=== PATIENT | male | born 1955 | race Caucasian/White ===

== ENCOUNTER 2019-10-18 13:57 | Inpatient (IN) ==
[2019-10-18] MEDS ORDERED: methylPREDNISolone SOD SUC 125 MG/2 ML VIAL IV STA (14:26)
[2019-10-18] MEDS ORDERED: cefTRIAXone 1,000 MG in SODIUM CHLORIDE 0.9% 100 ML IV STA (14:26)
[2019-10-18] MEDS ORDERED: ONDANSETRON 4 MG/2 ML VIAL IV STA (14:26)
[2019-10-18] MEDS ORDERED: ALBUTEROL 2.5 MG/3 ML NEB RESP TX SCH (14:30)
[2019-10-18] MEDS ORDERED: cefTRIAXone 1,000 MG VIAL ONE (15:02)
[2019-10-18 15:07] LABS: ABG Base Excess 3.5 MMOL/L (-2.5-2.5); ABG HCO3 27.5 MMOL/L (20-26); ABG Oxygen Saturation 98.4 % (95-100); ABG PH 7.448 (7.35-7.45); ABG TCO2 24.7 MMOL/L (23-27)
[2019-10-18 15:13] LABS: Basophils % 0.4 % (0.0-0.8); Eosinophils # 0.2 10*3/uL (0.0-0.87); Eosinophils % 1.9 % (0.00-10.9); Hematocrit 33.3 VOL% (42.0-52.0); Hemoglobin 11.5 GM/DL (14.0-18.0); Immature Granulocytes % 0.3 %; Immature Granulocytes Absolute 0.03 #; Lymphocytes # 2.7 10*3/uL (1.4-4.0); Lymphocytes % 24.9 % (21.2-54.2); Mean Corpuscular HGB Conc 34.5 GM/DL (32-36); Mean Corpuscular Volume 97.7 FL (87-102); Mean Platelet Volume 10.7 FL (9.6-12.0); Monocytes % 12.5 % (1.7-12.7); Platelet Count 305 T/CUMM (130-400); Red Blood Count 3.41 MC/CUMM (3.8-5.5); Red Cell Distribution Width 11.9 % (9.3-17.3); White Blood Count 10.7 T/CUMM (4-12)
[2019-10-18 15:31] LABS: INR 1.1; PT Patient Result 11.4 SECS (9.6-12.2)
[2019-10-18 15:53] LABS: Albumin 2.6 G/DL (3.4-5.0); Bilirubin,Total 0.6 MG/DL (0.2-1.0); Calcium 9.4 MG/DL (8.5-10.1); Total Protein 6.8 G/DL (6.4-8.3)
[2019-10-18] MEDS ORDERED: DILTIAZEM 25 MG/5 ML VIAL IV ONE (15:53)
[2019-10-18] MEDS ORDERED: DILTIAZEM 50 MG/10 ML VIAL IV STA (15:53)
[2019-10-18] MEDS ORDERED: SODIUM CHLORIDE 0.9% 1,000 ML IV STA ×2 (15:54→17:27)
[2019-10-18] MEDS ORDERED: dilTIAZem Drip 125 MG/125 ML PREMIX IV ONE (15:55)
[2019-10-18] MEDS ORDERED: dilTIAZem Drip 125 MG/125 ML PREMIX IV SCH (16:00)
[2019-10-18] MEDS ORDERED: MAGNESIUM SULF RIDER 2 GM in PREMIX 1 EACH IV STA (16:43)
[2019-10-18] MEDS ORDERED: PHENYLEPHRINE DRIP 40 MG/250 ML PREMIX IV ONE (17:12)
[2019-10-18] MEDS ORDERED: DIGOXIN 0.5 MG/2 ML AMP ONE (17:12)
[2019-10-18] MEDS ORDERED: DIGOXIN 0.5 MG/2 ML AMP IV STA ×2 (17:12→19:00)
[2019-10-18] MEDS ORDERED: PHENYLEPHRINE DRIP 40 MG/250 ML PREMIX IV PRN (17:27)
[2019-10-18] MEDS ORDERED: KETOROLAC 30 MG/1 ML VIAL ONE (17:32)
[2019-10-18] MEDS ORDERED: KETOROLAC 30 MG/1 ML VIAL IV ONE (17:45)
[2019-10-18] MEDS ORDERED: ONDANSETRON 4 MG/2 ML VIAL IV PRN (17:57)
[2019-10-18] MEDS ORDERED: ALBUTEROL 2.5 MG/3 ML NEB RESP TX PRN (17:57)
[2019-10-18] MEDS: SODIUM CHLORIDE 0.9% 1,000 ML IV SCH (19:17)
[2019-10-18] MEDS: ALBUTEROL/IPRATROPIUM 3 ML NEB RESP TX SCH (19:38)
[2019-10-18] MEDS ORDERED: DILTIAZEM CD 120 MG CAPSULE PO SCH (21:00)
[2019-10-18] MEDS: DILTIAZEM 30 MG TABLET PO SCH (23:02)
[2019-10-18] MEDS: GABAPENTIN 300 MG CAPSULE PO SCH (23:03)
[2019-10-18] MEDS: methylPREDNISolone SOD SUC 40 MG/1 ML VIAL IV SCH (23:39)
[2019-10-18] MEDS: PANTOPRAZOLE 40 MG VIAL IV SCH (23:40)
[2019-10-19] MEDS: ALBUTEROL/IPRATROPIUM 3 ML NEB RESP TX SCH ×4 (00:30→20:33)
[2019-10-19] MEDS: methylPREDNISolone SOD SUC 40 MG/1 ML VIAL IV SCH ×3 (02:40→17:52)
[2019-10-19] MEDS: SODIUM CHLORIDE 0.9% 1,000 ML IV SCH ×2 (02:50→12:28)
[2019-10-19] MEDS ORDERED: KETOROLAC 15 MG/1 ML VIAL IV ONE (04:54)
[2019-10-19] MEDS ORDERED: ACETAMINOPHEN 325 MG TABLET PO PRN (04:54)
[2019-10-19 06:24] LABS: Basophils % 0.1 % (0.0-0.8); Hematocrit 31.8 VOL% (42.0-52.0); Immature Granulocytes % 0.3 %; Immature Granulocytes Absolute 0.02 #; Lymphocytes # 0.7 10*3/uL (1.4-4.0); Lymphocytes % 8.8 % (21.2-54.2); Mean Corpuscular HGB Conc 34.6 GM/DL (32-36); Mean Corpuscular Volume 97.2 FL (87-102); Mean Platelet Volume 11.1 FL (9.6-12.0); Monocytes % 1.4 % (1.7-12.7); Neutrophils % 89.4 % (38.7-73.9); Platelet Count 305 T/CUMM (130-400); Red Blood Count 3.27 MC/CUMM (3.8-5.5)
[2019-10-19 06:58] LABS: Albumin 2.3 G/DL (3.4-5.0); Bilirubin,Total 0.7 MG/DL (0.2-1.0); Calcium 8.9 MG/DL (8.5-10.1); Osmolality,Calculated 278.4 MOS/KG (273-304); Thyroid Stimulating Hormone 0.34 uIU/ml (0.358-3.74); Total Protein 6.6 G/DL (6.4-8.3)
[2019-10-19] MEDS: oxyCODONE IR 5 MG TABLET PO PRN ×2 (09:37→21:25)
[2019-10-19] MEDS: GABAPENTIN 300 MG CAPSULE PO SCH ×3 (09:38→20:04)
[2019-10-19] MEDS: DIGOXIN 0.25 MG TABLET PO SCH (09:38)
[2019-10-19] MEDS: DILTIAZEM 30 MG TABLET PO SCH ×4 (09:38→20:04)
[2019-10-19] MEDS: MORPHINE ER 30 MG TABLET PO SCH ×2 (14:12→20:04)
[2019-10-19] MEDS: PANTOPRAZOLE 40 MG VIAL IV SCH (17:53)
[2019-10-20] MEDS: ALBUTEROL/IPRATROPIUM 3 ML NEB RESP TX SCH ×4 (00:22→20:28)
[2019-10-20] MEDS: methylPREDNISolone SOD SUC 40 MG/1 ML VIAL IV SCH ×4 (02:55→21:23)
[2019-10-20] MEDS: oxyCODONE IR 5 MG TABLET PO PRN ×2 (03:54→19:31)
[2019-10-20 05:05] LABS: Hematocrit 31.7 VOL% (42.0-52.0); Immature Granulocytes % 0.5 %; Immature Granulocytes Absolute 0.11 #; Lymphocytes # 0.8 10*3/uL (1.4-4.0); Lymphocytes % 3.5 % (21.2-54.2); Mean Corpuscular HGB Conc 34.7 GM/DL (32-36); Mean Corpuscular Volume 97.5 FL (87-102); Monocytes % 1.9 % (1.7-12.7); Neutrophils % 94.1 % (38.7-73.9); Platelet Count 305 T/CUMM (130-400); Red Blood Count 3.25 MC/CUMM (3.8-5.5); Red Cell Distribution Width 12.2 % (9.3-17.3)
[2019-10-20 05:36] LABS: Band Neutrophils 3 % (0-10); Lymphocytes 2 % (20-55); Segmented Neutrophils 94 % (50-85); Total Cells Counted 100
[2019-10-20 05:37] LABS: Anisocytosis 1+; Ovalocytes Few
[2019-10-20 05:38] LABS: Alanine Aminotransferase 17 U/L (16-61); Albumin 2.3 G/DL (3.4-5.0); Alkaline Phosphatase 96 U/L (45-117); Aspartate Amino Transferase 20 U/L (0-37); Bilirubin,Total < 0.39 MG/DL (0.2-1.0); Blood Urea Nitrogen 9 MG/DL (7-18); Calcium 8.9 MG/DL (8.5-10.1); Estimated Glom Filtration Rate 87 ML/MIN; Glucose 133 MG/DL (74-106); Osmolality,Calculated 281.3 MOS/KG (273-304); Platelet Estimate Normal; Total Protein 6.2 G/DL (6.4-8.3)
[2019-10-20] MEDS ORDERED: POTASSIUM CHLORIDE 20 MEQ TABLET PO PRN (09:33)
[2019-10-20] MEDS: MORPHINE ER 30 MG TABLET PO SCH ×2 (09:42→21:21)
[2019-10-20] MEDS: GABAPENTIN 300 MG CAPSULE PO SCH ×3 (09:42→21:21)
[2019-10-20] MEDS: DIGOXIN 0.25 MG TABLET PO SCH (09:42)
[2019-10-20] MEDS: DILTIAZEM 30 MG TABLET PO SCH (09:42)
[2019-10-20] MEDS ORDERED: ALBUTEROL SULFATE INH PRN (09:48)
[2019-10-20] MEDS ORDERED: OXYCODONE 15 MG PO PRN (09:48)
[2019-10-20] MEDS ORDERED: POTASSIUM CHLORIDE 20 MEQ/15 ML UDCUP PO ONE (12:13)
[2019-10-20] MEDS ORDERED: IPRATROPIUM 500 MCG/2.5 ML NEB RESP TX SCH (13:00)
[2019-10-20] MEDS: DILTIAZEM CD 120 MG CAPSULE PO SCH (16:22)
[2019-10-20] MEDS: TAMSULOSIN 0.4 MG CAPSULE PO SCH (21:20)
[2019-10-20] MEDS: DOCUSATE SODIUM 100 MG CAPSULE PO SCH (21:22)
[2019-10-20] MEDS: PANTOPRAZOLE 40 MG TABLET PO SCH (21:22)
[2019-10-21] MEDS: ALBUTEROL/IPRATROPIUM 3 ML NEB RESP TX SCH ×4 (00:02→20:26)
[2019-10-21] MEDS: oxyCODONE IR 5 MG TABLET PO PRN ×2 (04:37→15:23)
[2019-10-21 05:23] LABS: Basophils % 0.1 % (0.0-0.8); Hematocrit 32.9 VOL% (42.0-52.0); Hemoglobin 11.3 GM/DL (14.0-18.0); Immature Granulocytes % 0.5 %; Immature Granulocytes Absolute 0.09 #; Lymphocytes # 0.9 10*3/uL (1.4-4.0); Lymphocytes % 4.6 % (21.2-54.2); Mean Corpuscular HGB Conc 34.3 GM/DL (32-36); Mean Corpuscular Volume 96.5 FL (87-102); Monocytes % 2.9 % (1.7-12.7); Neutrophils % 91.9 % (38.7-73.9); Platelet Count 341 T/CUMM (130-400); Red Blood Count 3.41 MC/CUMM (3.8-5.5); Red Cell Distribution Width 12.2 % (9.3-17.3); White Blood Count 18.8 T/CUMM (4-12)
[2019-10-21 05:41] LABS: Hypochromasia 1+; Lymphocytes 5 % (20-55); Ovalocytes Slight; Platelet Estimate Adequate; Segmented Neutrophils 92 % (50-85); Total Cells Counted 100
[2019-10-21 05:46] LABS: Albumin 2.6 G/DL (3.4-5.0); Bilirubin,Total 0.6 MG/DL (0.2-1.0); Calcium 9.3 MG/DL (8.5-10.1); Osmolality,Calculated 280.4 MOS/KG (273-304); Total Protein 6.6 G/DL (6.4-8.3)
[2019-10-21] MEDS: methylPREDNISolone SOD SUC 40 MG/1 ML VIAL IV SCH ×3 (06:37→21:11)
[2019-10-21] MEDS: MORPHINE ER 30 MG TABLET PO SCH ×2 (11:50→21:12)
[2019-10-21] MEDS: PANTOPRAZOLE 40 MG TABLET PO SCH ×2 (11:50→21:12)
[2019-10-21] MEDS: DOCUSATE SODIUM 100 MG CAPSULE PO SCH ×2 (11:50→21:12)
[2019-10-21] MEDS: GABAPENTIN 300 MG CAPSULE PO SCH ×3 (11:51→21:12)
[2019-10-21] MEDS: DILTIAZEM CD 120 MG CAPSULE PO SCH (11:51)
[2019-10-21] MEDS: POLYETHYLENE GLYCOL POWDER 17 GM PACK PO SCH (11:51)
[2019-10-21] MEDS: DIGOXIN 0.25 MG TABLET PO SCH (11:51)
[2019-10-21] MEDS: TAMSULOSIN 0.4 MG CAPSULE PO SCH (21:12)
[2019-10-22] MEDS: ALBUTEROL/IPRATROPIUM 3 ML NEB RESP TX SCH ×4 (02:01→19:29)
[2019-10-22] MEDS: methylPREDNISolone SOD SUC 40 MG/1 ML VIAL IV SCH ×3 (04:17→20:35)
[2019-10-22] MEDS ORDERED: LACTATED RINGERS 1,000 ML IV SCH (08:00)
[2019-10-22] MEDS ORDERED: MORPHINE 4 MG/1 ML VIAL IV SCH (09:00)
[2019-10-22] MEDS ORDERED: LIDOCAINE 2% 5 ML VIAL ONE (10:00)
[2019-10-22] MEDS ORDERED: propofoL 200 MG/20 ML VIAL IV ONE (10:00)
[2019-10-22] MEDS: MORPHINE ER 30 MG TABLET PO SCH ×2 (11:52→20:34)
[2019-10-22] MEDS: POLYETHYLENE GLYCOL POWDER 17 GM PACK PO SCH (11:52)
[2019-10-22] MEDS: DOCUSATE SODIUM 100 MG CAPSULE PO SCH ×2 (11:52→20:35)
[2019-10-22] MEDS: GABAPENTIN 300 MG CAPSULE PO SCH ×3 (11:53→20:35)
[2019-10-22] MEDS: DILTIAZEM CD 120 MG CAPSULE PO SCH (11:53)
[2019-10-22] MEDS: PANTOPRAZOLE 40 MG TABLET PO SCH ×2 (11:53→20:35)
[2019-10-22] MEDS: DIGOXIN 0.25 MG TABLET PO SCH (11:53)
[2019-10-22] MEDS ORDERED: MORPHINE 4 MG/1 ML VIAL IV PRN (12:20)
[2019-10-22] MEDS ORDERED: DIGOXIN 0.5 MG/2 ML AMP IV STA (12:24)
[2019-10-22] MEDS ORDERED: METOPROLOL TARTRATE 5 MG/5 ML VIAL IV ONE (13:14)
[2019-10-22] MEDS ORDERED: MAGNESIUM SULF RIDER 2 GM in PREMIX 1 EACH IV ONE (13:15)
[2019-10-22] MEDS ORDERED: POTASSIUM CHLORIDE 20 MEQ TABLET PO ONE (13:15)
[2019-10-22] MEDS ORDERED: METOPROLOL TARTRATE 5 MG/5 ML VIAL IV PRN (13:36)
[2019-10-22] MEDS: SODIUM CHLORIDE 0.9% 1,000 ML IV SCH (14:30)
[2019-10-22] MEDS: DILTIAZEM 30 MG TABLET PO SCH ×2 (17:16→20:34)
[2019-10-22] MEDS: TAMSULOSIN 0.4 MG CAPSULE PO SCH (20:35)
[2019-10-22] MEDS: oxyCODONE IR 5 MG TABLET PO PRN (23:52)
[2019-10-23] MEDS: ALBUTEROL/IPRATROPIUM 3 ML NEB RESP TX SCH ×3 (01:20→12:49)
[2019-10-23] MEDS: SODIUM CHLORIDE 0.9% 1,000 ML IV SCH (02:29)
[2019-10-23 05:35] LABS: Basophils % 0.1 % (0.0-0.8); Hematocrit 32.9 VOL% (42.0-52.0); Hemoglobin 11.5 GM/DL (14.0-18.0); Immature Granulocytes % 0.3 %; Immature Granulocytes Absolute 0.04 #; Lymphocytes # 0.6 10*3/uL (1.4-4.0); Lymphocytes % 5.1 % (21.2-54.2); Mean Corpuscular Volume 96.5 FL (87-102); Monocytes % 5.3 % (1.7-12.7); Neutrophils % 89.2 % (38.7-73.9); Platelet Count 299 T/CUMM (130-400); Red Blood Count 3.41 MC/CUMM (3.8-5.5); Red Cell Distribution Width 12.3 % (9.3-17.3); White Blood Count 12.1 T/CUMM (4-12)
[2019-10-23 05:52] LABS: Calcium 8.8 MG/DL (8.5-10.1); Osmolality,Calculated 282.4 MOS/KG (273-304)
[2019-10-23] MEDS: methylPREDNISolone SOD SUC 40 MG/1 ML VIAL IV SCH ×2 (05:54→13:08)
[2019-10-23] MEDS: PANTOPRAZOLE 40 MG TABLET PO SCH (08:39)
[2019-10-23] MEDS: MORPHINE ER 30 MG TABLET PO SCH (08:39)
[2019-10-23] MEDS: DILTIAZEM 30 MG TABLET PO SCH (08:39)
[2019-10-23] MEDS: DOCUSATE SODIUM 100 MG CAPSULE PO SCH (08:40)
[2019-10-23] MEDS: GABAPENTIN 300 MG CAPSULE PO SCH ×2 (08:40→14:44)
[2019-10-23] MEDS: DIGOXIN 0.25 MG TABLET PO SCH (08:41)
[2019-10-23] MEDS: POLYETHYLENE GLYCOL POWDER 17 GM PACK PO SCH (08:43)
[2019-10-23] MEDS ORDERED: POTASSIUM CHLORIDE 20 MEQ TABLET PO ONE (09:36)
[2019-10-23] MEDS ORDERED: DIGOXIN 0.25 MG TABLET PO SCH (09:42)
[2019-10-23] MEDS ORDERED: DILTIAZEM CD 120 MG CAPSULE PO SCH (10:00)
[2019-10-23] MEDS ORDERED: METOPROLOL SUCCINATE XL 25 MG TABLET PO SCH (10:00)
[2019-10-23] MEDS: oxyCODONE IR 5 MG TABLET PO PRN (10:53)
[2019-10-23] MEDS ORDERED: FLUCONAZOLE 200 MG TABLET PO ONE (12:11)
[2019-10-23 12:18] VITALS: BP 106/67
[2019-10-24] MEDS ORDERED: POTASSIUM CHLORIDE 20 MEQ TABLET PO SCH (09:00)
== END 2019-10-23 15:08 | disposition hospice, home (50) | DRG 281 ==
LOC: N.ED 13:57 → N.EDINP 17:57 → SUATTDRO 17:57 → N.ICU 19:15 → N.4E 10-19 17:06
PROVIDERS: ADMIT Physician Assistant; ATTEND Internal Medicine